=== PATIENT | male | born 1985 | race Caucasian/White ===

== ENCOUNTER 2018-11-19 19:53 | Emergency (ER) | payer SELFPAY ==
[~2018-11-19] VITALS: Ht 180.3 cm; Wt 97.1 kg
== END 2018-11-19 20:57 | disposition left against medical advice (07) ==
LOC: ER 19:53
DX: M54.9 Dorsalgia, unspecified (principal)

== ENCOUNTER 2022-01-12 13:58 | Emergency (ER) | payer SELFPAY ==
[~2022-01-12] VITALS: Ht 180.3 cm; Wt 97.1 kg
[2022-01-12] MEDS ORDERED: SODIUM CHLORIDE 0.9% 1000ML 1,000 ML IV ONE (14:15)
[2022-01-12] MEDS ORDERED: CEFTRIAXONE 1 GM VIAL IM ONE (14:15)
[2022-01-12] MEDS ORDERED: ONDANSETRON HCL INJ 2MG/ML 2ML 2 MG/ML VIAL IV PRN (14:15)
[2022-01-12] MEDS ORDERED: METRONIDAZOLE 500 MG TAB PO ONE (14:15)
[2022-01-12 14:33] LABS: BASOPHILS % 0.4 % (0.0-1.0); EOSINOPHILS # (AUTO) 0.1 (0.0-0.4); EOSINOPHILS % 1.3 % (0.0-6.0); HEMATOCRIT 46.5 % (38.2-49.6); HEMOGLOBIN 15.5 g/dL (14.0-18.0); LYMPHOCYTES # (AUTO) 1.3 (1.0-3.2); MEAN CORPUSCULAR HEMOGLOBIN 31.4 pg (28-32); MEAN CORPUSCULAR HGB CONC 33.3 g/dL (31-35); MEAN CORPUSCULAR VOLUME 94.1 fL (81-99); MONOCYTES # (AUTO) 0.9 (0.2-0.8); MONOCYTES % 19.4 % (4.4-11.3); NEUTROPHILS # (AUTO) 2.2 (2.1-6.9); NEUTROPHILS % 49.7 % (38.7-80.0); PLATELET COUNT 189 x10e3/uL (140-360); RED BLOOD COUNT 4.94 x10e6/uL (4.3-5.7); RED CELL DISTRIBUTION WIDTH 12.4 % (11.7-14.4)
[2022-01-12] MEDS ORDERED: METRONIDAZOLE 500 MG TAB ONE (14:50)
[2022-01-12] MEDS ORDERED: LIDOCAINE HCL 1% 2 ML AMP ONE (14:52)
[2022-01-12 14:55] LABS: ALBUMIN 3.9 g/dL (3.5-5.0); ANION GAP 14.7 mmol/L (8-16); CALCIUM 8.5 mg/dL (8.4-10.2); CREATININE, SERUM 0.92 mg/dL (0.72-1.25); POTASSIUM 3.7 mmol/L (3.5-5.1)
[2022-01-12] MEDS ORDERED: CEFTRIAXONE 1 GM VIAL ONE (14:55)
[2022-01-12] MEDS ORDERED: PROAIR HFA INH8.5 GM PO (16:07)
[2022-01-12] MEDS ORDERED: PROTONIX20 MG PO (16:07)
[2022-01-12] MEDS ORDERED: BENZONATATE200 MG PO (16:07)
[2022-01-12] MEDS ORDERED: ONDANSETRON ODT4 MG PO (16:07)
[2022-01-12] MEDS ORDERED: DOXYCYCLINE HY100 MG PO (16:07)
== END 2022-01-12 17:17 | disposition home or self-care (01) ==
LOC: ER 14:04
DX: R11.2 Nausea with vomiting, unspecified (principal); K29.70 Gastritis, unspecified, without bleeding; J06.9 Acute upper respiratory infection, unspecified; R05.9 Cough, unspecified; Z20.2 Contact with and (suspected) exposure to infections with a predominantly sexual mode of transmission
CPT/HCPCS: 36415; 71045; 74018; 80053; 83690; 85025; 99284; C9113; J0696; J2001; J2405; J7030

== ENCOUNTER 2025-02-22 15:06 | Emergency (ER) | payer SELFPAY ==
[~2025-02-22] VITALS: Ht 180.3 cm; Wt 97.1 kg
[~2025-02-22 15:06] MED LIST: BENZONATATE200 MG PO; DOXYCYCLINE HY100 MG PO; ONDANSETRON ODT4 MG PO; PROAIR HFA INH8.5 GM PO; PROTONIX20 MG PO
[2025-02-22 15:15] VITALS: PULSE 72; RESP 18; TEMP 98.3
[2025-02-22] MEDS ORDERED: CLINDAMYCIN HC150 MG PO (15:35)
[2025-02-22] MEDS: TRAMADOL HCL 50 MG TAB PO ONE (15:36)
[2025-02-22 15:37] VITALS: BP 152/89; PULSE 72; RESP 18; TEMP 98.3; O2SAT 100
== END 2025-02-22 15:40 | disposition home or self-care (01) ==
LOC: ER 15:24
DX: K08.89 Other specified disorders of teeth and supporting structures (principal); K02.9 Dental caries, unspecified
CPT/HCPCS: 99283